=== PATIENT | female | born 1940 | race Caucasian/White ===

== ENCOUNTER 2017-01-11 10:11 | Emergency (ER) | payer MEDICARE, BC ==
[2017-01-11 10:24] VITALS: BP 141/64; PULSE 67; RESP 15; TEMP 97.7
--- NOTE | 2017-01-11 10:53 | ED ---
General Adult HPI - General Chief complaint: Skin/Abscess/Foreign Body Stated complaint: rash Time Seen by Provider: 01/11/17 10:36 Source: patient, family, RN notes reviewed Mode of arrival: ambulatory Limitations: no limitations - History of Present Illness Initial comments: 76-year-old female presents with a 5 day history of itchy rash on her right side extending down to the right breast. She denies pain. Denies fever chills. Denies any new foods, denies new soaps or detergents. Patient denies any contact with plant material. She denies chest pain shortness of breath, denies nausea vomiting diarrhea. past medical history of hypothyroidism and hypertension. - Related Data Previous Rx's Medication Instructions Recorded valACYclovir HCL [Valacyclovir] 1,000 mg PO Q12HR #14 tab 01/11/17 Allergies Allergy/AdvReac Type Severity Reaction Status Date / Time No Known Allergies Allergy Verified 01/11/17 10:24 Review of Systems ROS Statement: Those systems with pertinent positive or pertinent negative responses have been documented in the HPI. ROS Other: All systems not noted in ROS Statement are negative. Respiratory: Denies: cough Cardiovascular: Denies: chest pain Past Medical History Past Medical History: Hyperlipidemia, Hypertension, Thyroid Disorder Additional Past Medical History / Comment(s): hearing impairment History of Any Multi-Drug Resistant Organisms: None Reported Past Surgical History: Cholecystectomy, Hysterectomy Past Psychological History: No Psychological Hx Reported Smoking Status: Never smoker Past Alcohol Use History: Rare Past Drug Use History: None Reported General Exam Limitations: no limitations General appearance: alert, in no apparent distress Head exam: Present: atraumatic, normocephalic Eye exam: Present: normal appearance, PERRL ENT exam: Present: normal exam Neck exam: Present: normal inspection, full ROM Respiratory exam: Present: normal lung sounds bilaterally. Absent: respiratory distress Cardiovascular Exam: Present: regular rate, normal rhythm GI/Abdominal exam: Present: soft. Absent: distended, tenderness Extremities exam: Present: normal capillary refill. Absent: pedal edema Back exam: Present: rash noted Neurological exam: Present: alert, oriented X3. Absent: motor sensory deficit Psychiatric exam: Present: normal affect, normal mood Skin exam: Present: warm, dry, rash, vesicles (Patient has a vesicular rash extending from the right anteriorly to the midline underneath the right breast. Rash is vesicular in nature.) Course Vital Signs 01/11/17 10:19 Temperature 97.7 F Pulse Rate 67 Respiratory 15 Rate Blood Pressure 141/64 O2 Sat by Pulse 99 Oximetry Medical Decision Making - Medical Decision Making 76-year-old female presenting with a 5 day history of rash which is itchy and not significantly painful. Rash on examination consistent with herpes zoster extending from the midline back to Underneath the right breast. Patient will be treated for shingles. She will be given outpatient dermatology follow. She is encouraged to return to emergency department with worsening or changing symptoms. Disposition Clinical Impression: Herpes zoster Disposition: HOME SELF-CARE Condition: Good Instructions: Shingles (ED) Prescriptions: valACYclovir HCL [Valacyclovir] 1,000 mg PO Q12HR #14 tab Referrals: Nonstaff,Physician [Primary Care Provider] - 1-2 days Radha Aj MD [STAFF PHYSICIAN] - 1-2 days Time of Disposition: 10:51
== END 2017-01-11 11:14 | disposition home or self-care (01) ==
LOC: EC 10:11
DX: B02.9 Zoster without complications (principal)
CPT/HCPCS: 99282